=== PATIENT | female | born 1965 | race Caucasian/White ===

== ENCOUNTER → 2017-06-06 | Outpatient (CLI) | payer MEDICAID ==
[~2017-06-06] MED LIST: FLUP10TA PO; FLUP5TAB PO; GLYB1.253 PO; HYDR50CA3 PO; LEVO500T80 PO; OXYC-464 PO; QUET300T2 PO; QUET300T3 PO; QUET50TA49 PO
--- NOTE | 2017-06-06 12:08 | Diagnostic Imaging Report ---
PROCEDURE: CT sinuses without contrast TECHNIQUE: Multiple contiguous axial images were obtained through the sinuses without the use of intravenous contrast. Coronal and sagittal reformations were then performed. INDICATION: Chronic maxillary sinus disease. No prior studies are available for comparison. FINDINGS: The frontal sinus is clear. Ethmoid air cells and sphenoid sinus are clear. Bilateral maxillary sinuses are clear. No mucosal thickening is identified. There are no air-fluid levels present. The ostiomeatal complexes appear to be patent. There is some nasal septal deviation, convex to the right in the upper portion and to the left in the lower portion. The mastoid air cells are well aerated. IMPRESSION: No evidence of sinusitis. Dictated by: Dictated on workstation # [id number]
== END ==
LOC: RAD 11:43
PROVIDERS: ATTEND Otolaryngology Otolaryngology/Facial Plastic Surgery
DX: J32.0 Chronic maxillary sinusitis (principal)
CPT/HCPCS: 70486

== ENCOUNTER 2018-06-12 11:01 | Emergency (ER) | payer MEDICAID ==
[~2018-06-12] VITALS: Ht 162.6 cm; Wt 81.6 kg
[~2018-06-12 11:01] MED LIST changes: +QUET50TA4 PO; -QUET50TA49 PO
--- NOTE | 2018-06-12 11:29 | ED Upper Extremity ---
General Chief Complaint: Upper Extremity Stated Complaint: FELL AT HOME RT ARM/SHOULDER INJURY Nursing Triage Note: PT AMB TO TRIAGE WITH COMPLAINT OF RIGHT SHOULDER/ARM PAIN. PT STATES SHE WAS IN LAUNDRY ROOM ON TUESDAY WHEN SHE FELL AND LANDED ON RIGHT SHOULDER. STATES HER PAIN HAS BEEN INCREASING SINCE. Nursing Sepsis Screen: No Definite Risk Source: patient Exam Limitations: no limitations History of Present Illness Date Seen by Provider: Jun 12, 2018 Time Seen by Provider: 11:18 Initial Comments 52-year-old female who presents to the emergency room with complaints of right shoulder pain after a fall 2 days ago. She reports that she tripped in her laundry room landing onto her right shoulder. She reports increasing pain with movement of right shoulder. Denies other injuries from the fall. Pain/Injury Location: right shoulder Method of Injury: fell Modifying Factors: Worse With Movement Allergies and Home Medications Allergies Coded Allergies: No Known Drug Allergies (Unverified , 08/31/15) Home Medications Fluphenazine HCl 10 Mg Tablet, 10 MG PO HS, (Reported) Fluphenazine HCl 5 Mg Tablet, 5 MG PO DAILY, (Reported) Glyburide 1.25 Mg Tablet, 1.25 MG PO BID Prescribed by: BRITTNEY BARRON on 09/04/15 0842 Hydrocodone Bit/Acetaminophen 1 Tab Tab, 1-2 EACH PO Q6H PRN for PAIN-MODERATE Prescribed by: CHA FERGUSON on 06/12/18 1227 Hydroxyzine Pamoate 50 Mg Capsule, 50 MG PO DAILY, (Reported) Hydroxyzine Pamoate 50 Mg Capsule, 100 MG PO HS, (Reported) TAKES 2 (50MG) CAPSULES Levofloxacin 500 Mg Tablet, 500 MG PO DAILY@0800 Prescribed by: BRITTNEY BARRON on 09/04/15 0842 Oxycodone HCl/Acetaminophen 1 Each Tablet, 1 EACH PO Q4H PRN for PAIN Prescribed by: BRITTNEY BARRON on 09/04/15 0842 Quetiapine Fumarate 50 Mg Tab.er.24h, 100 MG PO HS, (Reported) TAKES 2 (50MG) TABLETS Quetiapine Fumarate 300 Mg Tab.er.24h, 600 MG PO HS, (Reported) TAKES 2 (300MG) TABLETS Patient Home Medication List Home Medication List Reviewed: Yes Review of Systems Constitutional: see HPI; No chills, No fever Musculoskeletal: see HPI, joint pain (right shoulder pain) All Other Systems Reviewed Negative Unless Noted: Yes Past Abgrdso-Qofqwo-Trafxp Hx Past Med/Social Hx: Reviewed Nursing Past Med/Soc Hx Patient Social History Alcohol Use: Denies Use Recreational Drug Use: No Smoking Status: Current Everyday Smoker Type Used: Cigarettes Former Smoker, Quit: Aug 27, 2015 Recent Foreign Travel: No Contact w/Someone Who Travel: No Recent Infectious Disease Expo: No Immunizations Up To Date Tetanus Booster (TDap): Unknown PED Vaccines UTD: Yes Seasonal Allergies Seasonal Allergies: No Past Medical History Surgeries: Yes (DENTAL--TEETH REMOVED) Respiratory: Yes Pneumonia Cardiac: No Neurological: No Reproductive Disorders: No 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 Sexually Transmitted Disease: No HIV/AIDS: No Gastrointestinal: Yes Chronic Constipation Musculoskeletal: No Endocrine: Yes Diabetes, Non-Insulin dep Cancer: No Psychosocial: Yes Anxiety, Bipolar, Schizophrenia, Depression Blood Disorders: No Family Medical History Reviewed Nursing Family Hx Diabetes mellitus 19 FATHER Hypertension 19 FATHER No Pertinent Family Hx Physical Exam Vital Signs Vital Signs - First Documented 06/12/18 11:09 Pulse 78 Resp 19 B/P (MAP) 145/98 (114) Pulse Ox 98 O2 Delivery Room Air Capillary Refill : Less Than 3 Seconds Height, Weight, BMI Height: 5'4.00" Weight: 180lbs. 0.0oz. 81.804451mg; 28.3 BMI Method:Stated General Appearance: WD/WN, no apparent distress Cardiovascular: normal peripheral pulses, regular rate, rhythm, no edema, no gallop, no JVD, no murmur Respiratory: chest non-tender, lungs clear, normal breath sounds, no respiratory distress, no accessory muscle use Shoulder: limited ROM (right shoulder full range of motion but increasing pain pain with range of motion), pain, soft tissue tenderness Neurologic/Psychiatric: alert, normal mood/affect, oriented x 3 Skin: normal color, warm/dry Progress/Results/Core Measures Results/Orders My Orders Orders - CHA FERGUSON Shoulder, Right, 3 Views (06/12/18 11:18) Hydrocodone/Apap 7.5/325 Tab (Lortab 7. (06/12/18 12:15) Medications Given in ED Vital Signs/I&O Blood Pressure Mean: 114 Progress Progress Note : Time: 12:26 Progress Note I have seen and evaluated the patient. I've informed her of her imaging studies. She was placed in a arm sling to immobilize her arm. She was instructed to follow-up with Dr. Araya for further orthopedic evaluation. She agrees with plans of care, plans for discharge, return precautions were given. Diagnostic Imaging Diagonstic Imaging: Xray Comments NAME: MINERVA MANZANO [facility] REC#: [id number] PT STATUS: REG ER : 1965 PHYSICIAN: CHA FERGUSON ADMIT DATE: 06/12/18/ER Signed Date of Exam: 06/12/18 SHOULDER, RIGHT, 3 VIEWS FINDINGS: There is a mildly comminuted fracture of the right humeral head and neck. There is no dislocation. AC joint is unremarkable. Right lung is clear. IMPRESSION: Mildly comminuted fracture of the right humeral head and neck. Dictated by: Dictated on workstation # [id number] Dict: 06/12/18 1154 Trans: 06/12/18 1202 Interpreted by: WOODROW HUTTON MD Electronically signed by: WOODROW HUTTON MD 06/12/18 1202 Reviewed: Reviewed by Me Departure Impression Primary Impression: Humerus head fracture Disposition: 01 HOME, SELF-CARE Condition: Stable/Unchanged Departure-Patient Inst. Decision time for Depature: 12:26 Referrals: OMERO AMATO MD (PCP/Family) Primary Care Physician NAYELI ARAYA DO Patient Instructions: Upper Arm Fracture Add. Discharge Instructions: Ice to the sore areas at 20 minute intervals. Wear the arm sling at all times. You may use ibuprofen and Tylenol for pain relief, for pain unrelieved by ibuprofen and Tylenol use the hydrocodone. Do not exceed your daily limit of Tylenol of 4000mg. Call Dr. Araya's office today to schedule an appointment for an orthopedic evaluation. Return back to the emergency room for worsening symptoms or concerns as needed. All discharge instructions reviewed with patient and/or family. Voiced understanding. Scripts Hydrocodone Bit/Acetaminophen (Hydrocodone/Acetaminophen 5/325mg Tablet) 1 Tab Tab 1-2 EACH PO Q6H PRN for PAIN-MODERATE MDD 10, #20 TAB Prov: CHA FERGUSON 06/12/18 CHA FERGUSON Jun 12, 2018 11:29
--- NOTE | 2018-06-12 11:58 | Diagnostic Imaging Report ---
FINDINGS: There is a mildly comminuted fracture of the right humeral head and neck. There is no dislocation. AC joint is unremarkable. Right lung is clear. IMPRESSION: Mildly comminuted fracture of the right humeral head and neck. Dictated by: Dictated on workstation # [id number]
[2018-06-12] MEDS ORDERED: HYDROcodone/APAP 7.5 MG/325 MG (LORTAB, LORCET PLUS) TABLET PO ONE (12:15)
[2018-06-12] MEDS ORDERED: ACHD5005 PO (12:27)
[2018-06-12 12:35] VITALS: BP 145/98
== END 2018-06-12 12:35 | disposition home or self-care (01) ==
LOC: EDUNIT# 11:01 → ER 11:02
DX: S42.291A Other displaced fracture of upper end of right humerus, initial encounter for closed fracture (principal); E11.9 Type 2 diabetes mellitus without complications; F41.9 Anxiety disorder, unspecified; F31.9 Bipolar disorder, unspecified; F20.9 Schizophrenia, unspecified; Z79.4 Long term (current) use of insulin; Z87.891 Personal history of nicotine dependence; Z87.01 Personal history of pneumonia (recurrent); Z87.19 Personal history of other diseases of the digestive system; W18.30XA Fall on same level, unspecified, initial encounter
CPT/HCPCS: 73030

== ENCOUNTER 2022-01-29 16:09 | Emergency (ER) | payer MEDICAID ==
[~2022-01-29 16:09] MED LIST changes: +ACHD5005 PO; -FLUP10TA PO; +FLUP10TA12 PO; -FLUP5TAB PO; +FLUP5TAB13 PO; +LEVO-55 PO; -LEVO500T80 PO; -OXYC-464 PO; +OXYC1TAB15 PO
[2022-01-29] MEDS ORDERED: OLANZapine 5 MG ODT (ZyPREXA ZYDIS) PO ONE (16:15)
--- NOTE | 2022-01-29 16:19 | ED General ---
General Chief Complaint: General Problems/Pain Stated Complaint: PSYCH,SOB Source of Information: Patient, EMS Exam Limitations: No Limitations History of Present Illness Date Seen by Provider: Jan 29, 2022 Time Seen by Provider: 16:10 Initial Comments 56-year-old female with past medical history of schizophrenia coming in via EMS because she states she is homeless, and cold. She states she has been off of her psychiatric medications and she hears voices. She is concerned that the food where she was staying previously was unsafe due to the bugs in the house. She is denying any suicidal homicidal ideation. She is denying any pain anywhere. She is mostly stating that she is unable to go back into the cold. Allergies and Home Medications Allergies Coded Allergies: No Known Drug Allergies (Unverified , 08/31/15) Patient Home Medication List Home Medication List Reviewed: Yes Fluphenazine HCl (Fluphenazine HCl) 10 Mg Tablet, 10 MG PO HS, (Reported) Entered as Reported by: WILLIAM FERGUSON on 08/31/15 0813 Fluphenazine HCl (Fluphenazine HCl) 5 Mg Tablet, 5 MG PO DAILY, (Reported) Entered as Reported by: WILLIAM FERGUSON on 08/31/15 0813 Glyburide (Glyburide) 1.25 Mg Tablet, 1.25 MG PO BID Prescribed by: BRITTNEY BARRON on 09/04/15 0842 Hydrocodone Bit/Acetaminophen (Lortab 5 Mg Tablet) 1 Tab Tab, 1-2 EACH PO Q6H PRN for PAIN-MODERATE Prescribed by: CHA FERGUSON on 06/12/18 1227 Hydroxyzine Pamoate (Hydroxyzine Pamoate) 50 Mg Capsule, 50 MG PO DAILY, (Reported) Entered as Reported by: WILLIAM FERGUSON on 08/31/15 0813 Hydroxyzine Pamoate (Hydroxyzine Pamoate) 50 Mg Capsule, 100 MG PO HS, (Reported) Entered as Reported by: KAREN MARTINEZ on 09/01/15 0829 Levofloxacin (Levofloxacin) 500 Mg Tablet, 500 MG PO DAILY@0800 Prescribed by: BRITTNEY BARRON on 09/04/15 0842 Oxycodone HCl/Acetaminophen (Oxycodon-Acetaminophen 7.5-325) 1 Each Tablet, 1 EACH PO Q4H PRN for PAIN Prescribed by: BRITTNEY BARRON on 09/04/15 0842 Quetiapine Fumarate (Seroquel Xr) 50 Mg Tab.er.24h, 100 MG PO HS, (Reported) Entered as Reported by: WILLIAM FERGUSON on 08/31/15 0813 Quetiapine Fumarate (Seroquel Xr) 300 Mg Tab.er.24h, 600 MG PO HS, (Reported) Entered as Reported by: KAREN MARTINEZ on 09/01/15 0830 Review of Systems Review of Systems Constitutional: No fever EENTM: no symptoms reported Respiratory: no symptoms reported Cardiovascular: no symptoms reported Gastrointestinal: no symptoms reported Genitourinary: no symptoms reported Musculoskeletal: no symptoms reported Skin: no symptoms reported Psychiatric/Neurological: See HPI Hematologic/Lymphatic: No Symptoms Reported Immunological/Allergic: no symptoms reported All Other Systems Reviewed Negative Unless Noted: Yes Past Yoyebhk-Jjlrtl-Ymiswy Hx Patient Social History Tobacco Use?: Yes Tobacco type used: Cigarettes Use of E-Cig and/or Vaping dev: No Substance use?: Yes Substance type: Marijuana Alcohol Use?: No Pt feels they are or have been: No Immunizations Up To Date Tetanus Booster (TDap): Unknown PED Vaccines UTD: Yes Seasonal Allergies Seasonal Allergies: No Past Medical History Surgeries: Yes (DENTAL--TEETH REMOVED) Respiratory: Yes Pneumonia Cardiac: No Neurological: No Reproductive Disorders: No 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 0.0oz. 81.581811qe; 28.3 BMI Method:Stated General Appearance: Other (Attending to stimuli, rapid speech) Eyes: Bilateral Eye Normal Inspection, Bilateral Eye PERRL HEENT: PERRL/EOMI, Normal ENT Inspection, Pharynx Normal Neck: Full Range of Motion, Normal Inspection, Non Tender, Supple Respiratory: Chest Non Tender, Lungs Clear, Normal Breath Sounds, No Accessory Muscle Use, No Respiratory Distress Cardiovascular: Regular Rate, Rhythm, No Edema, Normal Peripheral Pulses Gastrointestinal: Normal Bowel Sounds, Non Tender, Soft; No Distended, No Guarding Back: Normal Inspection, No CVA Tenderness, No Vertebral Tenderness Extremity: Normal Capillary Refill, Normal Inspection, Normal Range of Motion, Non Tender, No Calf Tenderness, No Pedal Edema Neurologic/Psychiatric: Alert, No Motor/Sensory Deficits, Normal Mood/Affect Skin: Normal Color, Warm/Dry Lymphatic: No Adenopathy Progress/Results/Core Measures Suspected Sepsis SIRS Temperature: Pulse: Respiratory Rate: Laboratory Tests 01/29/22 16:28: White Blood Count 14.9H Blood Pressure / Mean: Laboratory Tests 01/29/22 16:28: Creatinine 0.74, Platelet Count 167, Total Bilirubin 0.9 Results/Orders Lab Results Laboratory Tests Test 01/29/22 16:13 01/29/22 16:28 01/29/22 16:45 Range/Units Urine Color DARK YELLOW Urine Clarity CLEAR Urine pH 6.0 5-9 Urine Specific [place] >=1.030 1.016-1.022 Urine Protein 2+ H NEGATIVE Urine Glucose (UA) 2+ H NEGATIVE Urine Ketones 1+ H NEGATIVE Urine Nitrite NEGATIVE NEGATIVE Urine Bilirubin 2+ H NEGATIVE Urine Urobilinogen 4.0 < = 1.0 MG/DL Urine Leukocyte Esterase TRACE H NEGATIVE Urine RBC (Auto) NEGATIVE NEGATIVE Urine RBC NONE /HPF Urine WBC 5-10 H /HPF Urine Squamous Epithelial Cells 10-25 H /HPF Urine Crystals NONE /LPF Urine Bacteria LARGE H /HPF Urine Casts NONE /LPF Urine Mucus NEGATIVE /LPF Urine Culture Indicated YES White Blood Count 14.9 H 4.3-11.0 10^3/uL Red Blood Count 5.53 H 3.80-5.11 10^6/uL Hemoglobin 15.5 11.5-16.0 g/dL Hematocrit 45 35-52 % Mean Corpuscular Volume 82 80-99 fL Mean Corpuscular Hemoglobin 28 25-34 pg Mean Corpuscular Hemoglobin Concent 34 32-36 g/dL Red Cell Distribution Width 13.6 10.0-14.5 % Platelet Count 167 130-400 10^3/uL Mean Platelet Volume 10.9 9.0-12.2 fL Immature Granulocyte % (Auto) 0 % Neutrophils (%) (Auto) 79 H 42-75 % Lymphocytes (%) (Auto) 14 12-44 % Monocytes (%) (Auto) 6 0-12 % Eosinophils (%) (Auto) 0 0-10 % Basophils (%) (Auto) 0 0-10 % Neutrophils # (Auto) 11.8 H 1.8-7.8 10^3/uL Lymphocytes # (Auto) 2.1 1.0-4.0 10^3/uL Monocytes # (Auto) 0.9 0.0-1.0 10^3/uL Eosinophils # (Auto) 0.0 0.0-0.3 10^3/uL Basophils # (Auto) 0.0 0.0-0.1 10^3/uL Immature Granulocyte # (Auto) 0.1 0.0-0.1 10^3/uL Neutrophils % (Manual) 81 % Lymphocytes % (Manual) 11 % Monocytes % (Manual) 8 % Sodium Level 133 L 135-145 MMOL/L Potassium Level 4.1 3.6-5.0 MMOL/L Chloride Level 95 L 98-107 MMOL/L Carbon Dioxide Level 23 21-32 MMOL/L Anion Gap 15 H 5-14 MMOL/L Blood Urea Nitrogen 14 7-18 MG/DL Creatinine 0.74 0.60-1.30 MG/DL Estimat Glomerular Filtration Rate 94 BUN/Creatinine Ratio 19 Glucose Level 331 H 70-105 MG/DL Calcium Level 9.4 8.5-10.1 MG/DL Corrected Calcium 9.0 8.5-10.1 MG/DL Total Bilirubin 0.9 0.1-1.0 MG/DL Aspartate Amino Transf (AST/SGOT) 36 H 5-34 U/L Alanine Aminotransferase (ALT/SGPT) 31 0-55 U/L Alkaline Phosphatase 164 H 40-136 U/L Total Protein 8.0 6.4-8.2 GM/DL Albumin 4.5 3.2-4.5 GM/DL Salicylates Level < 0.3 L 5.0-20.0 MG/DL Acetaminophen Level < 10 L 10-30 UG/ML Serum Alcohol < 10 <10 MG/DL Urine Opiates Screen NEGATIVE NEGATIVE Urine Oxycodone Screen NEGATIVE NEGATIVE Urine Methadone Screen NEGATIVE NEGATIVE Urine Propoxyphene Screen NEGATIVE NEGATIVE Urine Barbiturates Screen NEGATIVE NEGATIVE Ur Tricyclic Antidepressants Screen NEGATIVE NEGATIVE Urine Phencyclidine Screen NEGATIVE NEGATIVE Urine Amphetamines Screen POSITIVE H NEGATIVE Urine Methamphetamines Screen POSITIVE H NEGATIVE Urine Benzodiazepines Screen NEGATIVE NEGATIVE Urine Cocaine Screen POSITIVE H NEGATIVE Urine Cannabinoids Screen POSITIVE H NEGATIVE My Orders Orders - DUY VOSS MD Influenza A And B By Pcr (01/29/22 16:13) Covid 19 Inhouse Test (01/29/22 16:13) Ua Culture If Indicated (01/29/22 16:13) Cbc With Automated Diff (01/29/22 16:13) Comprehensive Metabolic Panel (01/29/22 16:13) Alcohol (01/29/22 16:13) Drug Screen Stat (Urine) (01/29/22 16:13) Acetaminophen (01/29/22 16:13) Salicylate (01/29/22 16:13) Olanzapine Orally Dissolve Tab (Zyprexa (01/29/22 16:15) Manual Differential (01/29/22 16:28) Urine Culture (01/29/22 16:13) Medications Given in ED Current Medications Medications Dose Ordered Sig/Kevin Route Start Time Stop Time Status Last Admin Dose Admin Olanzapine 10 mg ONCE ONCE PO 01/29/22 16:15 01/29/22 16:17 DC 01/29/22 16:20 10 MG Vital Signs/I&O 01/29/22 01/29/22 16:10 17:42 Temp 36.2 36.2 Pulse 92 92 Resp 16 16 B/P (MAP) 142/72 (95) 142/72 Pulse Ox 96 96 O2 Delivery Room Air Room Air Capillary Refill : Progress Note : Progress Note 56-year-old female with above history coming in mostly because she is cold. ABCs were intact and vitals were stable on presentation. The patient is obviously schizophrenic and off her medications, but the hallucinations are not commanding her to do anything dangerous. She denies any homicidal or suicidal ideations. She was given p.o. Zyprexa here to help with the psychosis. UDS positive for amphetamines, cocaine, marijuana. Patient denying these at this time. She is resting comfortably, tolerating p.o. No physical complaints that are emergent at this time. We were able to contact a community health psychologist social who came out to the emergency department and discussed housing options as well as food options. I believe she is stable for discharge with outpatient follow-up. She was sent home with strict return precautions. Departure Impression Primary Impression: Homelessness Additional Impression: Schizophrenia Qualified Codes: F20.0 - Paranoid schizophrenia Disposition: HOME, SELF-CARE Condition: Stable Departure-Patient Inst. Decision time for Depature: 17:45 Referrals: OMERO AMATO MD (PCP/Family) Primary Care Physician Patient Instructions: Schizophrenia (DC) Add. Discharge Instructions: Please call the [facility] number on the card that we gave you. They have a psychologist social that can help with your case. If you lose the card, the number is [phone]. Please also schedule an appointment with [facility] so they can help you with your medications. DUY VOSS MD Jan 29, 2022 16:18
[2022-01-29 16:32] LABS: BASOPHILS % (AUTO) 0 % (0-10); EOSINOPHILS % (AUTO) 0 % (0-10); HEMATOCRIT 45 % (35-52); HEMOGLOBIN 15.5 g/dL (11.5-16.0); LYMPHOCYTES # (AUTO) 2.1 10^3/uL (1.0-4.0); LYMPHOCYTES % (AUTO) 14 % (12-44); MEAN CORPUSCULAR HEMOGLOBIN 28 pg (25-34); MEAN CORPUSCULAR HGB CONC 34 g/dL (32-36); MEAN CORPUSCULAR VOLUME 82 fL (80-99); MEAN PLATELET VOLUME 10.9 fL (9.0-12.2); MONOCYTES # (AUTO) 0.9 10^3/uL (0.0-1.0); MONOCYTES % (AUTO) 6 % (0-12); NEUTROPHILS # (AUTO) 11.8 10^3/uL (1.8-7.8); NEUTROPHILS % (AUTO) 79 % (42-75); PLATELET COUNT 167 10^3/uL (130-400); WHITE BLOOD COUNT 14.9 10^3/uL (4.3-11.0)
[2022-01-29 16:59] LABS: CLARITY,URINE CLEAR; GLUCOSE, URINE (UA) 2+ (NEGATIVE); KETONES,URINE 1+ (NEGATIVE); LEUKOCYTE ESTERASE ,URINE TRACE (NEGATIVE); NITRITE,URINE NEGATIVE (NEGATIVE); PROTEIN,URINE 2+ (NEGATIVE)
[2022-01-29 17:01] LABS: ACETAMINOPHEN < 10 UG/ML (10-30); ALANINE AMINOTRANSFERASE 31 U/L (0-55); ALBUMIN 4.5 GM/DL (3.2-4.5); ALKALINE PHOSPHATASE 164 U/L (40-136); BILIRUBIN,TOTAL 0.9 MG/DL (0.1-1.0); BUN/CREATININE RATIO 19; CALCIUM 9.4 MG/DL (8.5-10.1); CARBON DIOXIDE 23 MMOL/L (21-32); CHLORIDE 95 MMOL/L (98-107); CREATININE SERUM 0.74 MG/DL (0.60-1.30); GFR ESTIMATED 94; GLUCOSE 331 MG/DL (70-105); POTASSIUM 4.1 MMOL/L (3.6-5.0); SALICYLATE < 0.3 MG/DL (5.0-20.0); SODIUM 133 MMOL/L (135-145)
[2022-01-29 17:06] LABS: BILIRUBIN,URINE 2+ (NEGATIVE); COLOR,URINE DARK YELLOW
[2022-01-29 17:07] LABS: BACTERIA,URINE LARGE /HPF
[2022-01-29 17:10] LABS: AMPHETAMINE SCREEN, URINE POSITIVE (NEGATIVE); BARBITURATE SCREEN URINE NEGATIVE (NEGATIVE); BENZODIAZEPINES SCREEN URINE NEGATIVE (NEGATIVE); CANNABINOID SCREEN, URINE POSITIVE (NEGATIVE); COCAINE SCREEN URINE POSITIVE (NEGATIVE); METHADONE STAT NEGATIVE (NEGATIVE); OPIATE SCREEN URINE NEGATIVE (NEGATIVE); OXYCODONE STAT NEGATIVE (NEGATIVE); PROPOXYPHENE STAT NEGATIVE (NEGATIVE); TRICYCLIC ANTIDEPRESSANTS SCRE NEGATIVE (NEGATIVE)
[2022-01-29 17:23] LABS: LYMPHOCYTES % (MANUAL) 11 %; MONOCYTES % (MANUAL) 8 %; NEUTROPHILS % (MANUAL) 81 %
[2022-01-29 17:42] VITALS: BP 142/72
== END 2022-01-29 17:42 | disposition home or self-care (01) ==
LOC: EDUNIT# 16:09 → ER FS 16:11
DX: F20.9 Schizophrenia, unspecified (principal); Z59.00 Homelessness unspecified; F17.210 Nicotine dependence, cigarettes, uncomplicated; F31.9 Bipolar disorder, unspecified
CPT/HCPCS: 80053; 80306; 81000; 85007; 87088; 99283; G0480 ×3; 80320; 80329